=== PATIENT | female | born 1985 | race Caucasian/White ===

== ENCOUNTER 2019-09-28 12:17 | Outpatient (RCR) | payer OTHER, SELFPAY ==
[2019-09-30] MEDS: RHO(D) IMMUNE GLOBULIN 300 MCG SYRINGE IM (13:31)
== END 2019-12-27 23:59 | disposition home or self-care (01) ==
LOC: ANHLAB 12:17
PROVIDERS: Visit Provider Obstetrics & Gynecology
DX: Z29.13 Encounter for prophylactic Rho(D) immune globulin (principal); O36.0990 Maternal care for other rhesus isoimmunization, unspecified trimester, not applicable or unspecified; Z3A.00 Weeks of gestation of pregnancy not specified
CPT/HCPCS: 36415; 85461; 90384; 96372; J2790

== ENCOUNTER 2019-11-08 09:18 | Outpatient (RCR) | payer OTHER, SELFPAY ==
[2019-11-08 09:46] VITALS: BP 127/73; PULSE 94
[2019-11-08 10:36] VITALS: BP 127/73; PULSE 94
== END 2019-11-30 07:50 | disposition home or self-care (01) ==
LOC: ANHOBOP 09:18
PROVIDERS: Visit Provider Obstetrics & Gynecology
DX: O16.3 Unspecified maternal hypertension, third trimester (principal); Z3A.34 34 weeks gestation of pregnancy
CPT/HCPCS: 59025

== ENCOUNTER 2019-11-30 05:00 | Inpatient (IN) | payer OTHER, SELFPAY ==
[2019-11-30] VITALS (178 sets, daily range): BP systolic 93–190; BP diastolic 12–139; PULSE 25–270; RESP 18–20; TEMP 36.3–37.5; O2SAT 82–100; BMI 46.8
--- NOTE | 2019-11-30 05:19 | LDADM ---
This patient, Reena Marshall, was admitted to Labor/Delivery/Recovery 104 on 11/30/19 at 05:00. Plans for labor, pain management and were discussed with patient. Patient/family oriented to hospital policies and general routines including ID bracelet, bed and alarms, visiting hours, pain management, procedures, bathroom and other care routines, personal items, smoking policy, room service/diet and guest tray routines, security routines, and visiting hours. Patient/Family are encouraged to report perceived risks to care and to ask questions if they do not understand what they are told or what they should do. See OBIX for further documentation.
[2019-11-30] MEDS: OXYTOCIN 30 UNITS/NS 500 ML 30 UNITS/500 ML BAG IV CONT (05:33)
[2019-11-30] MEDS: LACTATED RINGERS 1,000 ML 125 ML IV CONT ×4 (05:34→18:10)
[2019-11-30 05:41] LABS: Basophils Percent Auto 0.4 % (0.2-1.2); Eosinophils Absolute Auto 0.1 K/mm3 (0-0.3); Eosinophils Percent Auto 1.8 % (0-4.4); Hematocrit 34.9 % (37.0-47.0); Hemoglobin 11.9 g/dL (12.0-15.0); Immature Granulocyte Absolute 0.08 K/mm3 (0.00-0.031); Immature Granulocyte Percent A 1.1 % (0-0.5); Lymphocytes Absolute Auto 1.63 K/mm3 (0.9-3.2); Lymphocytes Percent Auto 22.9 % (18.3-44.2); Mean Corpuscular HGB Conc 34.1 g/dl (32-36); Mean Corpuscular Hemoglobin 30.2 pg (26-34); Mean Corpuscular Volume 88.6 fl (80-100); Mean Platelet Volume 10.3 fl (7.4-10.4); Monocytes Absolute Auto 0.3 K/mm3 (0.1-0.6); Monocytes Percent Auto 4.5 % (2.6-8.5); Neutrophils Absolute Auto 4.9 K/mm3 (1.3-6.7); Neutrophils Percent Auto 69.3 % (45.5-73.1); Platelet Count Result 189 k/mm3 (150-375); Red Blood Count 3.94 M/mm3 (4.2-5.4); Red Cell Distribution Width 12.4 % (11.5-14.5); White Blood Count 7.1 K/mm3 (4.5-10.0)
[2019-11-30 05:51] LABS: Alanine Aminotransferase 16 U/L (4-35); Albumin Level 3.4 g/dL (3.5-5.1); Alkaline Phosphatase 111 U/L (38-126); Anion Gap 8 mmol/L (8-16); Aspartate Amino Transferase 22 U/L (14-36); Bilirubin,Total 0.5 mg/dL (0.2-1.3); Blood Urea Nitrogen 7 mg/dL (7-17); Calcium 8.9 mg/dL (8.4-10.2); Carbon Dioxide 19 mmol/L (22-30); Chloride 106 mmol/L (98-107); Estimated CRCL calculation 166 ml/min; Estimated Glomerular Filt Rate > 60; Glucose 117 mg/dL (65-105); Potassium 3.6 mmol/L (3.4-5.0); Sodium 133 mmol/L (137-145); Uric Acid 4.6 mg/dL (2.5-7.5)
--- NOTE | 2019-11-30 06:08 | WPDANESEPP ---
Anes - Eval Pre Procedure Procedure: labor epidural Date/Time: 11/30/19 06:08 Surgeon: maggie Pre Op Diagnosis: Induction Patient Data Age: 33 Gender: F Height: 1.6 m Weight: 120 kg Last Vital Signs Pulse 87 11/30/19 06:01 BP 102/40 L 11/30/19 06:01 Allergies Allergy/AdvReac Type Severity Reaction Status Date / Time No Known Allergies Allergy Unknown Verified 01/28/15 09:16 Home Medications Medication Instructions Recorded Confirmed Type aspirin [Aspirin Low Dose] 81 mg PO DAILY 11/30/19 11/30/19 History labetalol 200 mg PO Q12H 11/30/19 11/30/19 History Laboratory Tests 11/30/19 11/30/19 11/30/19 05:28 05:28 05:28 WBC 7.1 K/mm3 K/mm3 (4.5-10.0) RBC 3.94 M/mm3 L M/mm3 (4.2-5.4) Hgb 11.9 g/dL L g/dL (12.0-15.0) Hct 34.9 % L % (37.0-47.0) MCV 88.6 fl fl (80-100) MCH 30.2 pg pg (26-34) MCHC 34.1 g/dl g/dl (32-36) RDW 12.4 % % (11.5-14.5) Plt Count 189 k/mm3 k/mm3 (150-375) MPV 10.3 fl fl (7.4-10.4) Immature Gran % (Auto) 1.1 % H % (0-0.5) Neut % (Auto) 69.3 % % (45.5-73.1) Lymph % (Auto) 22.9 % % (18.3-44.2) [place] % (Auto) 4.5 % % (2.6-8.5) Eos % (Auto) 1.8 % % (0-4.4) Baso % (Auto) 0.4 % % (0.2-1.2) Lymph # (Auto) 1.63 K/mm3 K/mm3 (0.9-3.2) [place] # (Auto) 0.3 K/mm3 K/mm3 (0.1-0.6) Eos # (Auto) 0.1 K/mm3 K/mm3 (0-0.3) Baso # (Auto) 0.0 K/mm3 K/mm3 (0.0-0.1) Abs Immat Gran (auto) 0.08 K/mm3 H K/mm3 (0.00-0.031) Absolute Neuts (auto) 4.9 K/mm3 K/mm3 (1.3-6.7) Absolute Nucleated RBC 0.0 K/mm3 K/mm3 (0.0-0.012) Nucleated RBC % 0.0 % % (0.0-0.2) Sodium 133 mmol/L L mmol/L (137-145) Potassium 3.6 mmol/L mmol/L (3.4-5.0) Chloride 106 mmol/L mmol/L (98-107) Carbon Dioxide 19 mmol/L L mmol/L (22-30) Anion Gap 8 mmol/L mmol/L (8-16) BUN 7 mg/dL mg/dL (7-17) Creatinine 0.50 mg/dL L mg/dL (0.7-1.0) Estim Creat Clear Calc 166 ml/min ml/min Estimated GFR > 60 (59 - ) Glucose 117 mg/dL H mg/dL (65-105) Uric Acid 4.6 mg/dL mg/dL (2.5-7.5) Calcium 8.9 mg/dL mg/dL (8.4-10.2) Total Bilirubin 0.5 mg/dL mg/dL (0.2-1.3) AST 22 U/L U/L (14-36) ALT 16 U/L U/L (4-35) Alkaline Phosphatase 111 U/L U/L (38-126) Total Protein 6.0 g/dL L g/dL (6.3-8.2) Albumin 3.4 g/dL L g/dL (3.5-5.1) RPR Pending Patient hx anesthesia problems: none Family hx anesthesia problems: none [facility] Family History Family History (Updated 11/08/19 @ 09:57 by Denise Shafer RN) Other Unknown family medical history Social History Social History Smoking status: Never smoker Alcohol intake: current Substance use: never Gender identity (if verbalized by the patient): Female Sexual Orientation (if Verbalized by the Patient): Straight or Heterosexual Spiritual care concerns: No Exam Day of Procedure 11/30/19 06:08
--- NOTE | 2019-11-30 07:48 | PM.OBPNVD ---
OB - PN: Subj Subjective Date/time seen: 11/30/19 07:48 AROM - clear 3/50/-3 reassuring FHT's OB - PN: Obj Data Labs CBC & Chem 7: 11/30/19 05:28 11/30/19 05:28 Labs: Laboratory Results - last 24 hr 11/30/19 11/30/19 11/30/19 05:28 05:28 05:28 WBC 7.1 RBC 3.94 L Hgb 11.9 L Hct 34.9 L MCV 88.6 MCH 30.2 MCHC 34.1 RDW 12.4 Plt Count 189 MPV 10.3 Immature Gran % (Auto) 1.1 H Neut % (Auto) 69.3 Lymph % (Auto) 22.9 [place] % (Auto) 4.5 Eos % (Auto) 1.8 Baso % (Auto) 0.4 Lymph # (Auto) 1.63 [place] # (Auto) 0.3 Eos # (Auto) 0.1 Baso # (Auto) 0.0 Abs Immat Gran (auto) 0.08 H Absolute Neuts (auto) 4.9 Absolute Nucleated RBC 0.0 Nucleated RBC % 0.0 Sodium 133 L Potassium 3.6 Chloride 106 Carbon Dioxide 19 L Anion Gap 8 BUN 7 Creatinine 0.50 L Estim Creat Clear Calc 166 Estimated GFR > 60 Glucose 117 H Uric Acid 4.6 Calcium 8.9 Total Bilirubin 0.5 AST 22 ALT 16 Alkaline Phosphatase 111 Total Protein 6.0 L Albumin 3.4 L Blood Type O Negative Antibody Screen Negative OB - PN A/P Time Spent With Patient Time: Total time spent is greater than 50% in coordination of care (as documented) at patient's floor/unit and/or counseling patient:
[2019-11-30] MEDS: SODIUM CHLORIDE 0.9% IV 300 ML 600 ML I-UTERINE (14:04)
--- NOTE | 2019-11-30 23:07 | PM.OBPRVD ---
OB - Delivery Note Procedure Delivery date: 11/30/19 Procedure: Vaginal delivery. events: Induced HTN Intrapartal events: None and Deceleration Induction method: AROM and per pitocin protocol Delivery monitor: external FHT, external uterine, internal FHT and internal uterine Route of delivery: Episiotomy description: None Laceration description: Perineal - 1st Degree Delivery repair: vicryl Specimen: Yes Estimated blood loss (mL): 250 Anesthesia type: Epidural Disposition: other () Baby Date of : 11/30/19 Time of : 22:48 Weeks of gestation at delivery: 38 Infant gender: Male Weight (pounds): 6 Weight (ounces): 8 presentation: vertex position: Right Occiput Posterior Placenta delivery description: Spontaneous cord vessel description: 3 Vessels, Nuchal Cord, Tight, Reduced and Clamped/Cut score one minute: 9 score five minutes: 9 Narrative: Mother and baby skin to skin in stable condition.
[2019-11-30] MEDS: OXYTOCIN 30 UNITS/NS 500 ML 30 UNITS/500 ML BAG 125 UNITS IV CONT (23:28)
[2019-12-01] VITALS (11 sets, daily range): BP systolic 133–164; BP diastolic 66–96; PULSE 80–107; RESP 16–18; TEMP 36.6–36.8; O2SAT 97–99
[2019-12-01] MEDS: IBUPROFEN 600 MG TABLET PO ×3 (00:18→15:58)
[2019-12-01] MEDS: WITCH HAZEL 40 PADS 1 PAD TOPICAL (00:33)
--- NOTE | 2019-12-01 01:36 | PC.NURSE ---
This patient, Reena Marshall, was received from Labor and Deliveryon 12/01/19 at 0115. Personal belongings list checked and signed. Patient/family oriented to unit policies and routines
[2019-12-01 04:21] LABS: Hematocrit 29.6 % (37.0-47.0); Hemoglobin 10.3 g/dL (12.0-15.0)
[2019-12-01 07:21] LABS: Rapid Plasma Reagin Non-Reactive (NonReactive)
--- NOTE | 2019-12-01 07:39 | PM.OBPNVD ---
OB - PN: Subj Subjective Date/time seen: 12/01/19 07:39 Patient comments: no complaints, pain well controlled and other (Lochia similar to menses) [place] baby status: doing well OB - PN: Obj Data Labs CBC & Chem 7: 12/01/19 03:52 11/30/19 05:28 Labs: Laboratory Results - last 24 hr 11/30/19 12/01/19 05:28 03:52 Hgb 10.3 L Hct 29.6 L RPR Non-reactive OB - PN A/P Plan day: 1 (s/p vaginal delivery, doing well) Plan: routine care Time Spent With Patient Time: Total time spent is greater than 50% in coordination of care (as documented) at patient's floor/unit and/or counseling patient: Exam Const: General: no acute distress GI: Inspection: other (Fundus firm and nontender at umbilicus) GI Palp: Yes Soft to palpation and No Tenderness to palpation present (GI) Extrem: General: no edema
[2019-12-01] MEDS: DOCUSATE SODIUM 100 MG CAPSULE PO (09:26)
[2019-12-01] MEDS: MULTIVIT/MIN/PREN/FOL AC/IRON TABLET 1 TAB PO (09:26)
--- NOTE | 2019-12-01 12:45 | WPDANESPN ---
Anes - Prog Note Post-Op Date/Time: 12/01/19 12:45 Cardiovascular status: normal Respiratory status: normal Airway patency: baseline Mental status: baseline Post-Op hydration status: normal Vital Signs: Last Vital Signs Temp 36.8 C 12/01/19 07:10 Pulse 84 12/01/19 09:27 Resp 16 12/01/19 08:00 BP 142/94 H 12/01/19 07:10 Pulse Ox 99 12/01/19 08:00 Pain Score (VAS): 0/10. Patient resting in bed at time of assessment, appears comfortable. Support person at bedside. I/O: Intake & Output 11/30/19 12/01/19 12/01/19 23:59 07:59 15:59 Intake Total 1500 Output Total 103 Balance 1500 -103 Laboratory Tests 12/01/19 03:52 11/30/19 05:28 11/30/19 12/01/19 05:28 03:52 Hgb 10.3 L Hct 29.6 L RPR Non-reactive Post-procedural complaints: none Patient Feedback: Patient satisfied with anesthetic care.
[2019-12-01] MEDS: LABETALOL HCL 100 MG TABLET 200 MG PO (20:14)
--- NOTE | 2019-12-02 07:50 | P.PNOB_ITS ---
OB - PN: Subj Subjective Date/time seen: 12/02/19 07:50 Patient comments: no complaints, pain well controlled and tolerating diet OB - PN: Obj Data Labs CBC & Chem 7: 12/01/19 03:52 11/30/19 05:28 OB - PN A/P Plan day: 2 Plan: routine care and discharge home Time Spent With Patient Time: Total time spent is greater than 50% in coordination of care (as docume nted) at patient's floor/unit and/or counseling patient: Exam Const: General: comfortable and no acute distress Resp: Effort & Inspection: normal respiratory effort Auscultation: no rales, no rhonchi and no wheezes Cardio: Rate: regular rate Heart sounds: no click, no murmurs and no rubs GI: GI Palp: Yes Soft to palpation and No Tenderness to palpation present (GI) Auscultation: normal bowel sounds Extrem: General: normal to inspection, no pedal edema and no calf tenderness
--- NOTE | 2019-12-02 07:51 | P.DS_ITS ---
DS: Admitting Diagnosis Admitting Diagnosis Admitting Diagnosis: Induction DS: Discharge Diagnosis Discharge Diagnosis (1) Term delivered: Code(s): O80 - Encounter for full-term uncomplicated delivery Status: Acute OB - DS: Summary OB Procedures : None OB Procedures Intrapartum: Spontaneous Vag Delivery OB Procedures: : None Peripartum Data complications: none Status at Discharge Functional status at discharge: independent ambulation Time Spent with Patient Time attestation: Total time spent providing and/or coordinating discharge services: DS: Data Data Completed and Pending Pending studies at discharge: Pending at discharge 11/30/19 22:53 Surgical [PTH] Routine Discharge Plan Discharge Attending physician on discharge: Mona Malik Consulting providers: Mumtaz Miller Discharging Clinician: Mona Malik Patient Disposition: Home, Self-Care Activity: pelvic rest Diet: regular Patient Instructions: Antibiotic Form Stand Alone Forms: General Discharge Information Follow-up/Referrals: Mona Malik MD [Physician] - Discharge Medications: Continued labetalol 200 mg Tablet 200 mg PO Q12H RF: 0 aspirin [Aspirin Low Dose] 81 mg Tablet,Delayed Release (Dr/Ec) 81 mg PO DAILY RF: 0 Date of admission: 11/30/19 05:00 Primary Care Provider: PHYSICIAN,DIST[employer] SALES COORDINATOR Admitting Provider: Mona Malik Attending physician on admission: Mona Malik Condition: Stable
[2019-12-02 08:05] VITALS: BP 130/84; PULSE 88; RESP 16; TEMP 36.3; O2SAT 100
[2019-12-02] MEDS: IBUPROFEN 600 MG TABLET PO (09:12)
[2019-12-02] MEDS: MULTIVIT/MIN/PREN/FOL AC/IRON TABLET 1 TAB PO (09:12)
[2019-12-03 08:39] VITALS: BP 143/79; PULSE 87; RESP 20; O2SAT 100
== END 2019-12-02 11:40 | disposition home or self-care (01) | DRG 807 ==
LOC: ANHLDR 05:15 → ANHOB2 12-01 01:17
PROVIDERS: Advanced Practice Midwife; Admitting Provider Obstetrics & Gynecology; Visit Provider Obstetrics & Gynecology
DX: O10.92 Unspecified pre-existing hypertension complicating childbirth (principal); Z37.0 Single live birth; Z3A.38 38 weeks gestation of pregnancy; O36.8330 Maternal care for abnormalities of the fetal heart rate or rhythm, third trimester, not applicable or unspecified; O70.0 First degree perineal laceration during delivery; O69.1XX0 Labor and delivery complicated by cord around neck, with compression, not applicable or unspecified
CPT/HCPCS: 36415; 80053; 84550; 85014; 85018; 85025; 86592; 86850; 86900; 86901; 88307; A9270; J2590; J2795; J7030; J7120